=== PATIENT | male | born 1940 | race Caucasian/White ===

== ENCOUNTER → 2018-09-04 | Outpatient (CLI) | payer OTHER ==
[~2018-09-04] MED LIST: ACETAMINOPHEN-1 EAC3 PO; ADVIL FLU & BO1 EACH OR; ALEVE220 MG PO; ALLEGRA180 MG PO; ALLERCLEAR10 MG PO; ASPIRIN325 PO; BYSTOLIC 5 MG5 M1 PO; BYSTOLIC10 MG PO; CETAPHIL226 GM; COUMADIN 2 MG TA2 M1 PO; COUMADIN 5 MG TA5 M1 PO; DILANTIN50 MG PO; EXFORGEHCT; EXFORGEHCT PO; FISH OIL 1,0001 EAC5 PO; FLONASE 0.05%50 MCG NASAL; FLONASE 0.05%50 MCG NS; FUROSEMIDE 40 M40 M1 PO; GABAPENTIN100 MG PO; GLUCOPHAGE XR500 MG PO; IMDUR120 MG PO; INSPRA50 MG PO; K-DUR 20 MEQ T20 MEQ PO; LEVEMIR SC; LEVOTHROID PO; LEVOTHYROXINE0.05 MG PO; LEVOTHYROXINE75 MCG PO; LISINOPRIL40 MG PO; MEN'S MULTI-VI1 EACH PO; MULTIPLE VITAM1 EAC3 PO; MULTIVITAMINS PO; NEURONTIN 300300 M1 PO; NEXIUM40 MG PO; NIASPAN ER 101000 M1 PO; NORCO 10-325 T1 EACH PO; NOVOLOG100 UNIT/1 SQ; PLAVIX 75 MG TA75 M1 PO; PLAVIX 75 MG TA75 MG PO; SIMVASTATIN20 MG PO; SIMVASTATIN40 MG PO; SIMVASTATIN80 MG PO; TOPROL XL100 MG PO; TRIBENZOR 40-11 EAC1 PO
[2018-09-04 09:34] LABS: PROTIME 10.5 Seconds (9.3-11.4)
--- NOTE | 2018-09-07 11:12 | PATH ---
[facility] [address] [place] [address] PATHOLOGY RPT PROCEDURE Name: SHANNON CHAVEZ Room #: REG [facility].#: [id number] ������������������ Admission: 09/04/18 ������������������ Date of : 44 Discharge: Report #: [id number] Path Case #: [id number] Note [facility] Accession Number: [id number] TESTS RESULT FLAG UNITS REF RANGE LAB Clinician Provided Cytology Information No. of containers..01 Other (Miscellaneous) Source: PAROTID DIAGNOSIS: 02 LEFT PAROTID MASS, FINE NEEDLE ASPIRATION NEGATIVE FOR MALIGNANT CELLS. PROTEINACEOUS MATERIAL IS PRESENT. THIS INTERPRETATION INCLUDES EVALUATION OF A CELL BLOCK. ABUNDANT LYMPHOCYTES, PROTEINACEOUS MATERIAL AND ONCOCYTIC CELLS, FAVOR WARTHIN'S TUMOR. COMMENT. Examination shows abundant lymphocytes admixed with sheets of epithelial cells showing oncocytic change. The differential diagnosis includes a Warthin's tumor or a partially sampled oncocytic neoplasm. Please note sample may not be entirely marketing development representative. Correlate clinically and follow-up as indicated. [place]: Dr. Luis Causey. Pathologist ICD10: 02 D11.9 Signed out by: Corrie Valencia MD, Pathologist NPI- [id number] Performed by: Sharan Moctezuma, Breaker Unit Assembler ([facility]) Gross description: 01 17ML, RED, CLOUDY /LCS FLAG LEGEND: L-Low Normal,H-High Normal,LL-Alert Low,HH-Alert High <-Panic Low,>-Panic High,A-Abnormal,AA-Critical Abnormal Performed at: 01 [facility] [address] [place] [address] Frankie Sampson MD, [address] [address] Corrie Valencia MD, Specimen Comment: A courtesy copy of this report has been sent to [address] [address] PATHOLOGY RPT PROCEDURE Name: SHANNON CHAVEZ Room #: REG [facility] Draper#: [id number] ������������������ Admission: 09/04/18 ������������������ Date of : 44 Discharge: Report #: [id number] Path Case #: [id number] Specimen Comment: [phone], . Specimen Comment: Report sent to / DR RODRIGUEZ Specimen Comment: A duplicate report has been generated due to demographic updates. Performed at: [address] [facility] [id number], [place], [place] [id number] MD Frankie Sampson MD Phone: [phone]
== END | disposition home or self-care (01) ==
LOC: ULTRA 08:52
PROVIDERS: Otolaryngology
DX: D11.0 Benign neoplasm of parotid gland (principal); Z79.899 Other long term (current) drug therapy; Z79.01 Long term (current) use of anticoagulants

== ENCOUNTER → 2019-12-19 | Outpatient (CLI) | payer OTHER | LOC: SJCVC 09:45 | PROVIDERS: ATTEND Internal Medicine Cardiovascular Disease | DX: I45.10 Unspecified right bundle-branch block (principal); R94.31 Abnormal electrocardiogram [ECG] [EKG]; I44.0 Atrioventricular block, first degree; I49.1 Atrial premature depolarization; I25.810 Atherosclerosis of coronary artery bypass graft(s) without angina pectoris; I10 Essential (primary) hypertension; E78.5 Hyperlipidemia, unspecified; I71.4 Abdominal aortic aneurysm, without rupture; I77.1 Stricture of artery; I73.9 Peripheral vascular disease, unspecified; I65.23 Occlusion and stenosis of bilateral carotid arteries; E78.1 Pure hyperglyceridemia; Z79.899 Other long term (current) drug therapy; Z87.891 Personal history of nicotine dependence ==

== ENCOUNTER → 2020-01-23 | Outpatient (CLI) | payer OTHER | LOC: SJCVCIMAG 08:08 | PROVIDERS: ATTEND Internal Medicine Cardiovascular Disease | DX: I49.3 Ventricular premature depolarization (principal); I45.19 Other right bundle-branch block; I25.810 Atherosclerosis of coronary artery bypass graft(s) without angina pectoris; I48.0 Paroxysmal atrial fibrillation; Z79.899 Other long term (current) drug therapy; Z87.891 Personal history of nicotine dependence ==

== ENCOUNTER → 2020-10-22 | Outpatient (CLI) | payer OTHER | LOC: SJCVC 09:59 | PROVIDERS: ATTEND Internal Medicine Cardiovascular Disease | DX: R94.31 Abnormal electrocardiogram [ECG] [EKG] (principal); I49.1 Atrial premature depolarization; I45.10 Unspecified right bundle-branch block; I25.810 Atherosclerosis of coronary artery bypass graft(s) without angina pectoris; I48.0 Paroxysmal atrial fibrillation; I71.4 Abdominal aortic aneurysm, without rupture; I73.9 Peripheral vascular disease, unspecified; I65.23 Occlusion and stenosis of bilateral carotid arteries; I10 Essential (primary) hypertension; E78.00 Pure hypercholesterolemia, unspecified; M19.90 Unspecified osteoarthritis, unspecified site; Z95.1 Presence of aortocoronary bypass graft; Z88.8 Allergy status to other drugs, medicaments and biological substances; Z88.5 Allergy status to narcotic agent; Z79.899 Other long term (current) drug therapy; Z86.73 Personal history of transient ischemic attack (TIA), and cerebral infarction without residual deficits; Z87.891 Personal history of nicotine dependence; Z82.49 Family history of ischemic heart disease and other diseases of the circulatory system ==

== ENCOUNTER → 2021-05-07 | Outpatient (CLI) | payer OTHER | LOC: SJCVCIMAG 07:25 | PROVIDERS: ATTEND Internal Medicine Cardiovascular Disease | DX: I70.203 Unspecified atherosclerosis of native arteries of extremities, bilateral legs (principal); I74.5 Embolism and thrombosis of iliac artery; I70.8 Atherosclerosis of other arteries; I25.810 Atherosclerosis of coronary artery bypass graft(s) without angina pectoris; I48.0 Paroxysmal atrial fibrillation; I71.4 Abdominal aortic aneurysm, without rupture; I65.23 Occlusion and stenosis of bilateral carotid arteries; I10 Essential (primary) hypertension; E78.00 Pure hypercholesterolemia, unspecified; M19.90 Unspecified osteoarthritis, unspecified site; E78.1 Pure hyperglyceridemia; R09.02 Hypoxemia; R09.89 Other specified symptoms and signs involving the circulatory and respiratory systems; R65.10 Systemic inflammatory response syndrome (SIRS) of non-infectious origin without acute organ dysfunction; Z95.1 Presence of aortocoronary bypass graft; Z79.899 Other long term (current) drug therapy; Z87.891 Personal history of nicotine dependence; Z88.1 Allergy status to other antibiotic agents; Z88.5 Allergy status to narcotic agent; Z88.8 Allergy status to other drugs, medicaments and biological substances; I45.10 Unspecified right bundle-branch block ==